=== PATIENT | female | born 1995 ===

== ENCOUNTER 2016-09-02 16:58 | Emergency (ER) | payer OTHER ==
[2016-09-02 17:21] VITALS: BP 97/60; PULSE 69; RESP 16; TEMP 97.7; O2SAT 99
[2016-09-02 18:38] LABS: BASO % 0.3 % (0.0-2.0); EOS # 0.2 K/uL (0.0-0.7); EOS % 2.4 % (0.0-4.0); HEMATOCRIT 42.7 % (34.0-47.0); LYMPH # 2.1 K/uL (1.0-4.3); LYMPH % 21.7 % (20.0-40.0); MEAN CELL VOLUME 88.4 fl (81.0-99.0); MEAN CORPUSCULAR HEMOGLOBIN 28.9 pg (27.0-31.0); MEAN CORPUSCULAR HGB CONC 32.7 g/dL (33.0-37.0); MEAN PLATELET VOLUME 8.2 fl (7.2-11.7); MONO # 0.5 K/uL (0.0-0.8); MONO % 5.7 % (0.0-10.0); NEUT # 6.7 K/uL (1.8-7.0); NEUT % 69.9 % (50.0-75.0); RED CELL DISTRIBUTION WIDTH 13.6 % (11.5-14.5); WHITE BLOOD COUNT 9.6 K/uL (4.8-10.8)
[2016-09-02 18:57] LABS: ALB/GLOB RATIO 1.8 (1.0-2.1); ALKALINE PHOSPHATASE 95 U/L (38-126); ALT/SGPT 27 U/L (9-52); AST/SGOT 32 U/L (14-36); BILIRUBIN,TOTAL 0.5 mg/dl (0.2-1.3); BLOOD UREA NITROGEN 13 mg/dl (7-17); CALCIUM 10.2 mg/dL (8.4-10.2); CARBON DIOXIDE 27 mmol/L (22-30); CHLORIDE 101 mmol/L (98-107); GFR AFRICAN-AMERICAN > 60; GLUCOSE,RANDOM 97 mg/dL (65-105); POTASSIUM 4.6 MMOL/L (3.6-5.0); SODIUM 139 mmol/l (132-148); TOTAL PROTEIN 8.1 G/DL (6.3-8.2)
--- NOTE | 2016-09-02 20:05 | ED PDOC ---
HPI: Abdomen Time Seen by Provider: 09/02/16 17:25 Chief Complaint (Nursing): Abdominal Pain Chief Complaint (Provider): Abdominal Pain History Per: Patient History/Exam Limitations: no limitations Onset/Duration Of Symptoms: Days (x1 week) Current Symptoms Are (Timing): Still Present Additional Complaint(s): 20 y/o female presents to the emergency department with a complaint of a groin pain that started about a week ago but increased over the last 2 days. Associated with lightheadedness, nausea and pain that worsens with movement. Reports she has irregular periods (LKMP: July) and taking tests with negative results. Admits taking Tylenol for pain without the relief of symptoms. Denies vomiting, vaginal discharge, vaginal bleeding, diarrhea, constipation, use of contraceptives, or injury. Of note, patient states she had a pelvic fracture last year that required pelvic fixation. She is concerned because pain is different from any other pain she had experienced in the past. PMD: [facility] in [place], [place] Past Medical History Reviewed: Historical Data, Nursing Documentation, Vital Signs Vital Signs: Last Vital Signs Temp 97.7 F 09/02/16 17:17 Pulse 69 09/02/16 17:17 Resp 16 09/02/16 17:17 BP 97/60 L 09/02/16 17:17 Pulse Ox 99 09/02/16 21:06 - Medical History PMH: Denies: HIV - Surgical History Other surgeries: Breat augmentation and pelvic fixation - Family History Family History: States: Unknown Family Hx - Social History Current smoker - smoking cessation education provided: No - Home Medications Home Medications: Ambulatory Orders Medication Instructions Recorded Naproxen [Naprosyn] 1 tab PO BID PRN #30 tab 09/02/16 traMADol [Ultram] 50 mg PO TID PRN #15 tab 09/02/16 - Allergies Allergies/Adverse Reactions: Allergies Allergy/AdvReac Type Severity Reaction Status Date / Time No Known Allergies Allergy Verified 09/02/16 19:16 Review of Systems ROS Statement: Except As Marked, All Systems Reviewed And Found Negative Constitutional: Positive for: Other (Lightheadedness, use of contraceptives, or injury) Gastrointestinal: Positive for: Nausea. Negative for: Vomiting, Diarrhea, Constipation Genitourinary Female: Positive for: Other (Right groin pain). Negative for: Dysuria, Frequency, Incontinence, Hematuria, Vaginal Discharge, Vaginal Bleeding Physical Exam - Reviewed Nursing Documentation Reviewed: Yes Vital Signs Reviewed: Yes - Physical Exam Appears: Positive for: Well (Nourished), Non-toxic, In Acute Distress (Mild painful distress) Skin: Positive for: Normal Color, Warm, Dry Eye Exam: Positive for: Normal appearance Cardiovascular/Chest: Positive for: Regular Rate, Rhythm. Negative for: Murmur Respiratory: Positive for: Normal Breath Sounds. Negative for: Accessory Muscle Use, Respiratory Distress Gastrointestinal/Abdominal: Positive for: Soft, Tenderness (Tender on palpation to RLQ and right inguinal region). Negative for: Mass, Distended, Hernia Pelvic Exam: Positive for: Other (Pain elicited with hip flexion) Extremity: Positive for: Normal ROM, Other (5/5 strength of the right lower extremity. Neurovascularly intact. ). Negative for: Pedal Edema, Deformity Neurologic/Psych: Positive for: Alert, Oriented - Laboratory Results Result Diagrams: 09/02/16 18:30 09/02/16 18:30 - ECG O2 Sat by Pulse Oximetry: 99 (RA) Pulse Ox Interpretation: Normal Medical Decision Making Medical Decision Making: Time: 17:25 Initial impression: Right lower quadrant and right inguinal pain. Differential includes ovarian cysts, ovarian torsion, urinary tract infection, appendicitis, post surgical pain or adhesional pain. Initial plan: --ED Urine Dipstick (POC) Stat --ED Urine (POC) --Toradol 15 mg IV --Morphine 2 mg IVP --IV Insertion --Pelvis One View (RAD) --Transvaginal (US) --Revaluation Pelvis: Hardware in place. No displacement. EXAM: US Pelvis, Transvaginal CLINICAL HISTORY: 20 years old, female; Pain; Pelvic pain; Additional info: R pelvic pain TECHNIQUE: Real-time transvaginal pelvic ultrasound (complete) with image documentation. Transvaginal imaging was used for better evaluation of the endometrium and adnexa. COMPARISON: CT - ABD PELVIS W/O PO OR IV CONT 05/13/2016 2:50:35 AM FINDINGS: Uterus/cervix: Retroverted uterus. Uterus measures 6.6 x 3.2 x 3.7 cm in size. Endometrium: 0.4 cm in thickness. IUD in place. Right ovary: 2.2 x 2.0 x 2.4 cm in size. 1.8 x 1.6 x 1.5 cm anechoic lesion. Small follicles. Normal flow. Left ovary: 3.0 x 2.0 x 1.8 cm in size. No mass. Small follicles. Normal flow. Free fluid: No significant free fluid. Bladder: Empty bladder which cannot be evaluated with this probe. IMPRESSION: 1. RIGHT ovarian cyst. 2. Incidental/non-acute findings are described above. Thank you for allowing us to participate in the care of your patient. Dictated and Authenticated by: Josiah Beckford MD 09/02/2016 8:58 PM Eastern Time ([place] & [place]) On reeval pt feeling better. Labs unremarkable. Scribe Attestation: Documented by Jessica Calzada, acting as a scribe for Alva Díaz MD. Provider Scribe Attestation: All medical record entries made by the Scribe were at my direction and personally dictated by me. I have reviewed the chart and agree that the record accurately reflects my personal performance of the history, physical exam, medical decision making, and the department course for this patient. I have also personally directed, reviewed, and agree with the discharge instructions and disposition. Disposition - Clinical Impression Clinical Impression: Abdominal pain, Ovarian cyst Counseled Patient/Family Regarding: Studies Performed, Diagnosis, Need For Followup, Rx Given - Disposition Referrals: [facility] [Provider Group] - 09/03/16 (FOLLOW UP IN 1-2 DAYS WITH LOCAL [facility] [employer] ADMINSTRATOR FOR FURTHER MANAGEMENT.) Disposition: Routine/Home Disposition Time: 21:13 Condition: IMPROVED Prescriptions: Naproxen [Naprosyn] 1 tab PO BID PRN #30 tab PRN Reason: Pain traMADol [Ultram] 50 mg PO TID PRN #15 tab PRN Reason: SEVERE PAIN ONLY Instructions: Ovarian Cyst (ED), Abdominal Pain (ED), Narcotic Pain Management (ED)
--- NOTE | 2016-09-02 20:59 | US ---
EXAM: US Pelvis, Transvaginal CLINICAL HISTORY: 20 years old, female; Pain; Pelvic pain; Additional info: R pelvic pain TECHNIQUE: Real-time transvaginal pelvic ultrasound (complete) with image documentation. Transvaginal imaging was used for better evaluation of the endometrium and adnexa. COMPARISON: CT - ABD PELVIS W/O PO OR IV CONT 05/13/2016 2:50:35 AM FINDINGS: Uterus/cervix: Retroverted uterus. Uterus measures 6.6 x 3.2 x 3.7 cm in size. Endometrium: 0.4 cm in thickness. IUD in place. Right ovary: 2.2 x 2.0 x 2.4 cm in size. 1.8 x 1.6 x 1.5 cm anechoic lesion. Small follicles. Normal flow. Left ovary: 3.0 x 2.0 x 1.8 cm in size. No mass. Small follicles. Normal flow. Free fluid: No significant free fluid. Bladder: Empty bladder which cannot be evaluated with this probe. IMPRESSION: 1. RIGHT ovarian cyst. 2. Incidental/non-acute findings are described above.
--- NOTE | 2016-09-03 10:57 | RAD ---
PROCEDURE: Pelvis 09/02/2016. HISTORY: Right pelvic pain. History of fixation. COMPARISON: Comparison made with CT scan abdomen pelvis 05/19/2016. FINDINGS: The current study re- demonstrates partially threaded and cannulated fixation screws traversing (from right to left) the right posterior superior iliac bone and right aspect of the sacrum and 2nd of longer screw traversing the right pelvis sacrum and left pelvis. In addition, there is a lengthy fixation plate attached to the inferior pubic rim and symphysis by multiple threaded screws. Hardware appears intact without evidence of failure Presumed old posttraumatic fracture deformity medial aspect right inferior pubic ramus (with narrowing/penciling appearance) likely due to some posttraumatic resorption. In situ Copper-T IUD. Multiple small calcifications left aspect of the pelvis consistent with calcified pelvic phleboliths. Impression: Status post ORIF pelvis/sacrum by 2 partially threaded cannulated compression screws. There is also fixation plate attached to the anterior margin of the right acetabulum, anterior aspect of the right superior pubic ramus of crossing the symphysis and proximal aspect left superior pubic ramus. Hardware appears intact without evidence of failure. Presumed all posttraumatic fracture deformity right inferior pubic ramus as above.
== END 2016-09-02 21:21 | disposition home or self-care (01) ==
LOC: H.ER 16:58
DX: N83.201 Unspecified ovarian cyst, right side (principal)